=== PATIENT | male | born 2005 | race Caucasian/White ===

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

== ENCOUNTER → 2023-03-01 | Outpatient (CLI) | payer BC ==
[2023-03-01 16:38] LABS: ALT 32 U/L (10-49); AST 16 U/L (14-35); Albumin 4.8 d/dL (3.8-4.9); Alkaline Phosphatase 87 U/L (41-126); Blood Urea Nitrogen 11.9 mg/dL (9.0-27.0); Calcium 10.1 mg/dL (8.7-10.3); Carbon Dioxide 27.4 mmol/L (21.6-31.8); Chloride 101 mmol/L (96-109); Chol/HDL Ratio 2.96 Ratio; Globulin 2.4 d/dL (1.6-3.3); Glucose 136 mg/dL (70-110); LDL Cholesterol,Calculated 67.7 mg/dL (0.0-131.0); Potassium 4.3 mmol/L (3.5-5.5); Sodium 141 mmol/L (135-145); Total Bilirubin 0.7 mg/dL (0.3-1.2); Total Protein 7.2 d/dL (6.2-8.2)
[2023-03-01 18:57] LABS: Microalbumin Creatinine Ratio <12 mg/g Cr (0-30); Urine Creatinine 96.2 mg/dL (39.0-259.0)
== END | disposition home or self-care (01) ==
LOC: LABWHC1 07:01
PROVIDERS: ATTEND Internal Medicine Endocrinology, Diabetes & Metabolism
DX: E10.65 Type 1 diabetes mellitus with hyperglycemia (principal)
CPT/HCPCS: 36415; 80053; 80061; 82043; 82570; 83036; 84443

== ENCOUNTER → 2023-03-11 | Outpatient (CLI) | payer BC ==
[2023-03-11 08:00] LABS: INR 0.9 (<1.2); Partial Thromboplastin Time 25.5 sec (22.0-30.0); Prothrombin Time 9.9 sec (9.0-12.0)
--- NOTE | 2023-03-11 08:34 | XR ---
EXAMINATION TYPE: XR chest 2V DATE OF EXAM: 03/11/2023 7:39 AM COMPARISON: None TECHNIQUE: XR chest 2V Frontal and lateral views of the chest. CLINICAL INDICATION:Male, 18 years old with history of Z01.818; FINDINGS: Lungs/Pleura: There is no evidence of pleural effusion, focal consolidation, or pneumothorax. Pulmonary vascularity: Unremarkable. Heart/mediastinum: Cardiomediastinal silhouette is unremarkable. Musculoskeletal: No acute osseous pathology. : No acute cardiopulmonary disease/process.
[2023-03-11 11:50] LABS: Appearance,Urine Clear (Clear); Bilirubin,Urine Negative (Negative); Blood,Urine Negative (Negative); Color,Urine Yellow (Yellow); Ketones,Urine Negative (Negative); Nitrite,Urine Negative (Negative); Specific Gravity,Urine 1.016 (1.001-1.030); Urobilinogen,Urine 0.2 E.U./DL
[2023-03-11 11:57] LABS: HCT 47.4 % (39.6-50.0); HGB 15.6 d/dL (12.0-15.0); MCH 30.1 pg (27.0-32.0); MCHC 32.9 d/dL (32.0-37.0); MCV 91.3 FL (80.0-97.0); Mean Platelet Volume 11.3 FL (9.5-12.2); NRBC Per 100 WBC 0 X 10*3/uL (0.00-0.01); Platelet Count 234 X 10*3/uL (140-440); RBC 5.19 X 10*6/uL (4.40-5.60); RDW 12.5 % (11.5-14.5); WBC 8.43 X 10*3/uL (4.50-10.00)
[2023-03-11 11:58] LABS: Basophils # (A) 0.04 X 10*3/uL (0.00-0.10); Basophils % (A) 0.5 %; Eosinophils # (A) 0.14 X 10*3/uL (0.04-0.35); Eosinophils % (A) 1.7 %; Lymphocytes # (A) 3.33 X 10*3/uL (0.90-5.00); Lymphocytes % (A) 39.5 %; Monocytes # (A) 0.59 X 10*3/uL (0.20-1.00); Neutrophils # (A) 4.31 X 10*3/uL (1.80-7.70); Neutrophils % (A) 51.1 %
[2023-03-11 12:18] LABS: ALT 31 U/L (10-49); AST 20 U/L (14-35); Albumin 4.9 d/dL (3.8-4.9); Albumin/Globulin Ratio 1.96 Ratio (1.60-3.17); Alkaline Phosphatase 87 U/L (41-126); Blood Urea Nitrogen 17.6 mg/dL (9.0-27.0); Calcium 10.2 mg/dL (8.7-10.3); Carbon Dioxide 27.3 mmol/L (21.6-31.8); Chloride 100 mmol/L (96-109); Globulin 2.5 d/dL (1.6-3.3); Glucose 175 mg/dL (70-110); Potassium 4.1 mmol/L (3.5-5.5); Sodium 140 mmol/L (135-145); Total Bilirubin 1.2 mg/dL (0.3-1.2); Total Protein 7.4 d/dL (6.2-8.2)
== END | disposition home or self-care (01) ==
LOC: LABWHC1 07:15
PROVIDERS: ATTEND Neurological Surgery
DX: Z01.818 Encounter for other preprocedural examination (principal)
CPT/HCPCS: 36415; 71046; 80053; 81003; 83036; 85025; 85610; 85730; 87070

== ENCOUNTER → 2023-08-08 | Outpatient (CLI) | payer BC ==
[2023-08-08 15:36] LABS: Chol/HDL Ratio 2.73 Ratio; LDL Cholesterol,Calculated 72.4 mg/dL (0.0-131.0); VLDL Calculation 13.72 mg/dL (5.00-40.00)
[2023-08-08 15:44] LABS: ALT 34 U/L (10-49); AST 32 U/L (14-35); Albumin 4.9 g/dL (3.8-4.9); Albumin/Globulin Ratio 1.88 Ratio (1.60-3.17); Alkaline Phosphatase 97 U/L (41-126); Blood Urea Nitrogen 17.7 mg/dL (9.0-27.0); Calcium 10.4 mg/dL (8.7-10.3); Carbon Dioxide 24.2 mmol/L (21.6-31.8); Chloride 100 mmol/L (96-109); Globulin 2.6 g/dL (1.6-3.3); Glucose 158 mg/dL (70-110); Potassium 4.3 mmol/L (3.5-5.5); Sodium 139 mmol/L (135-145); Total Bilirubin 1.9 mg/dL (0.3-1.2); Total Protein 7.5 g/dL (6.2-8.2)
[2023-08-08 21:02] LABS: Microalbumin Creatinine Ratio <24 mg/g Cr (0-30); Urine Creatinine 49.4 mg/dL (39.0-259.0)
== END | disposition home or self-care (01) ==
LOC: LABWHC1 08:31
PROVIDERS: ATTEND Internal Medicine Endocrinology, Diabetes & Metabolism
DX: E10.65 Type 1 diabetes mellitus with hyperglycemia (principal)
CPT/HCPCS: 36415; 80053; 80061; 82043; 82570; 83036; 84443

== ENCOUNTER → 2024-08-07 | Outpatient (CLI) | payer BC ==
[2024-08-07 15:24] LABS: Chol/HDL Ratio 2.31 Ratio; LDL Cholesterol,Calculated 80.9 mg/dL (0.0-131.0); VLDL Calculation 8.64 mg/dL (5.00-40.00)
[2024-08-07 15:34] LABS: ALT 29 U/L (10-49); AST 24 U/L (14-35); Albumin 4.8 g/dL (3.8-4.9); Albumin/Globulin Ratio 1.85 Ratio (1.60-3.17); Alkaline Phosphatase 81 U/L (41-126); BUN/Creat Ratio 11.22 Ratio (12.00-20.00); Blood Urea Nitrogen 10.1 mg/dL (9.0-27.0); Calcium 10.2 mg/dL (8.7-10.3); Chloride 103 mmol/L (96-109); Globulin 2.6 g/dL (1.6-3.3); Glucose 144 mg/dL (70-110); Potassium 4.5 mmol/L (3.5-5.5); Sodium 140 mmol/L (135-145); Total Bilirubin 3.2 mg/dL (0.3-1.2); Total Protein 7.4 g/dL (6.2-8.2)
[2024-08-07 19:13] LABS: Microalbumin Creatinine Ratio <28 mg/g Cr (0-30); Urine Creatinine 42.6 mg/dL (39.0-259.0)
== END | disposition home or self-care (01) ==
LOC: LABWHC1 09:26
PROVIDERS: ATTEND Internal Medicine Endocrinology, Diabetes & Metabolism
DX: E10.65 Type 1 diabetes mellitus with hyperglycemia (principal)
CPT/HCPCS: 36415; 80053; 80061; 82043; 82570; 83036; 84443

== ENCOUNTER → 2025-02-13 | Outpatient (CLI) | payer BC ==
[2025-02-13 09:19] LABS: ALT 22 U/L (4-49); AST 24 U/L (17-59); African American GFR (CKD) >90 (>60 ml/min/1.73 sqM); Albumin 4.7 g/dL (3.5-5.0); Albumin/Globulin Ratio 1.8; Alkaline Phosphatase 76 U/L (38-126); Anion Gap 9 mmol/L; Blood Urea Nitrogen 12 mg/dL (9-20); Calcium 9.8 mg/dL (8.4-10.2); Carbon Dioxide 26 mmol/L (22-30); Chloride 104 mmol/L (98-107); Globulin 2.6 g/dL; Glucose 176 mg/dL (74-99); Non-African American GFR(CKD) >90 (>60 ml/min/1.73 sqM); Potassium 4.4 mmol/L (3.5-5.1); Sodium 139 mmol/L (137-145); Total Bilirubin 1.6 mg/dL (0.2-1.3); Total Protein 7.3 g/dL (6.3-8.2)
[2025-02-13 13:25] LABS: Chol/HDL Ratio 2.23 Ratio; LDL Cholesterol,Calculated 64.5 mg/dL (0.0-131.0); VLDL Calculation 8.76 mg/dL (5.00-40.00)
[2025-02-13 17:27] LABS: Microalbumin Creatinine Ratio <26 mg/g Cr (0-30); Urine Creatinine 46.9 mg/dL (39.0-259.0)
== END | disposition home or self-care (01) ==
LOC: LABWHC1 08:15
PROVIDERS: ATTEND Internal Medicine Endocrinology, Diabetes & Metabolism
DX: E10.65 Type 1 diabetes mellitus with hyperglycemia (principal)
CPT/HCPCS: 36415; 80053; 80061; 82043; 82570; 83036; 84443